=== PATIENT | male | born 1970 | race Two or more races ===

== ENCOUNTER 2016-09-13 07:50 | Day surgery (SDC) | payer OTHER ==
[~2016-09-13 07:50] MED LIST: FENTANYL 250 MCG/5 ML AMP IV PRN; LACTATED RINGERS 1,000 ML IV SCH; LIDOCAINE Viscous 2% 15 ML UDCUP PO PRN; MIDAZOLAM HCL 5 MG/5 ML VIAL IV PRN
[2016-09-13] MEDS ORDERED: IV START KIT ONE (07:54)
[2016-09-13] MEDS ORDERED: LACTATED RINGERS 1,000 ML ONE (07:54)
[2016-09-13] MEDS ORDERED: FENTANYL 100 MCG/2 ML VIAL ONE (08:59)
[2016-09-13] MEDS ORDERED: MIDAZOLAM HCL 5 MG/5 ML VIAL ONE (08:59)
[2016-09-13] MEDS ORDERED: LIDOCAINE Viscous 2% 15 ML UDCUP ONE (08:59)
[2016-09-13 17:15] LABS: HELICOBACTER PYLORII DETECTION NEGATIVE (NEGATIVE)
--- NOTE | 2016-09-15 11:01 | SURGPATH ---
[facility] [address] [place] [id number] Patient Name: VANE MACDONALD MR#: [id number] : 1970 Gender: M Specimen #: [id number] Collected: 09/13/2016 Received: 09/14/2016 Reported: 09/15/2016 Submitting Phys: JACOB KRAUS Copy To Phys: [facility] - HIM GIGENA, MIKA Clinical History / Pre-Operative Diagnosis: Epigastric pain with bloating, satiety, chronic cough, rule out; giardia, celiac sprue, gastritis Specimen Source / Surgical Procedure Performed: #1 duodenal biopsy, #2 antral biopsy Interpretation: 1. DUODENUM, BIOPSY: - NO PATHOLOGIC ABNORMALITIES 2. GASTRIC ANTRUM, BIOPSY: - NO PATHOLOGIC ABNORMALITIES Electronically Signed Out Vinny Blount M.D. Gross Description: 1. The specimen is received in formalin labeled with the patient's name and "duodenum". The specimen consists of two fragments of benitez soft tissue each is 0.4 cm in greatest dimension. Submitted in toto in one cassette 2. The specimen is received in formalin labeled with the patient's name and "antrum". The specimen consists of a single fragment of benitez soft tissue, 0.2 cm in greatest dimension. Submitted in toto in one cassette SANDIE Vigil Microscopic Description: 1. The sections show fragments of small bowel mucosa exhibiting a normal architectural pattern without evidence of villous blunting. There are no inflammatory or neoplastic features and there are no microorganisms identified. 2. The sections show fragments of gastric mucosa exhibiting a normal architectural pattern. There are no inflammatory or neoplastic features and there are no Helicobacter-like organisms identified. 1: [id number] 2: 87043 R10.13
== END 2016-09-13 10:02 | disposition home or self-care (01) ==
LOC: SDC 07:50
PROVIDERS: ATTEND Internal Medicine Gastroenterology
PROC: 0DB98ZX Excision of Duodenum, Via Natural or Artificial Opening Endoscopic, Diagnostic (ICD-10-PCS; principal; 2016-09-13)
PROC: 0DB68ZX Excision of Stomach, Via Natural or Artificial Opening Endoscopic, Diagnostic (ICD-10-PCS; 2016-09-13)
DX: K29.70 Gastritis, unspecified, without bleeding (principal); K29.80 Duodenitis without bleeding; R05 Cough
CPT/HCPCS: 87081; 43239; J3010; J2250; A9270; J7120